=== PATIENT | female | born 1955 | race Caucasian/White ===

== ENCOUNTER 2017-11-16 09:10 | Outpatient (CLI) | payer BC | END 2017-11-16 09:11 | disposition home or self-care (01) | LOC: BICMAMMO 09:10 | PROVIDERS: ATTEND Obstetrics & Gynecology | DX: Z12.31 Encounter for screening mammogram for malignant neoplasm of breast (principal); Z80.3 Family history of malignant neoplasm of breast | CPT/HCPCS: 77063; 77067 ==

== ENCOUNTER 2021-01-12 03:09 | Inpatient (IN) | payer BC, MEDICARE, SELFPAY ==
[2021-01-12] MEDS ORDERED: Acetaminophen 325 MG TAB PO PRN (06:01)
[2021-01-12] MEDS ORDERED: Polyethylene Glycol 3350 17 GM Packet PO PRN (06:20)
[2021-01-12 07:00] LABS: #Lymphocytes 0.9 thou/uL (1.20-3.40); #Monocytes 0.8 thou/uL (0.11-0.59); #Neutrophils 8.8 thou/uL (1.40-6.50); %Basophils 0.4 % (0.0-1.0); %Eosinophils 0.1 % (0.0-10.0); %Lymphocytes 8.8 % (21.0-51.0); %Monocytes 7.2 % (0.0-10.0); %Neutrophils 83.6 % (42.0-75.0); Hemoglobin 15.9 g/dL (12.0-16.0); Mean Corpuscular HGB CONC 33.9 g/dL (32.0-36.0); Mean Corpuscular Hemoglobin 32.5 pg (27.0-31.0); Mean Platelet Volume 7.8 fL (7.4-10.4); Platelet Count 217 thou/uL (130-400); RBC Distribution Width 11.5 % (11.5-14.5); White Blood Cell (WBC) Count 10.5 thou/uL (4.8-10.8)
[2021-01-12 07:07] LABS: Hemoglobin A1c 5.5 % (4.0-6.0)
[2021-01-12 07:11] LABS: Phosphorus 3.8 mg/dL (2.3-4.7)
[2021-01-12 07:15] LABS: ALT (SGPT) 41 U/L (8-55); AST (SGOT) 36 U/L (5-34); Albumin 3.2 g/dL (3.4-4.8); Alkaline Phosphatase 77 U/L (40-110); Anion Gap 15 mmol/L (10-20); BUN (Urea Nitrogen) 22 mg/dL (9.8-20.1); Calc. Creatinine Clearance 129 mL/min (70-130); Calcium 8.4 mg/dL (7.8-10.44); Carbon Dioxide 23 mmol/L (23-31); Chloride 103 mmol/L (98-107); Globulin 2.8 g/dL (2.4-3.5); Glucose 186 mg/dL (80-115); Potassium 3.8 mmol/L (3.5-5.1); Sodium 137 mmol/L (136-145)
[2021-01-12 07:21] LABS: CRP (Inflammatory) 6.46 mg/dL (= or < 0.5); Cholesterol 109 mg/dl (< 200 Desired); HDL Cholesterol 22 mg/dL (>60 Neg Risk); LDL Cholesterol, Calculated 71 mg/dL; Magnesium 2.1 mg/dL (1.6-2.6); Triglycerides 79 mg/dL (Less than 150)
[2021-01-12] MEDS ORDERED: Dexamethasone 4 MG TAB PO SCH (08:00)
[2021-01-12] MEDS ORDERED: Enoxaparin Sodium 40 MG/0.4 ML SYRINGE SC SCH (09:00)
[2021-01-12] MEDS: BARICITINIB 2 MG TAB PO SCH (09:06)
[2021-01-12] MEDS: Apixaban 5 MG TAB PO SCH ×2 (09:07→21:00)
[2021-01-12] MEDS: REMDESIVIR 100 MG in Sodium Chloride 0.9% 250 ML 230 ML IV SCH (11:06)
[2021-01-12] MEDS ORDERED: Iopamidol-370 76% 500 ML 1 ML ONE (12:28)
[2021-01-12] MEDS: Dexamethasone 10 MG/ML VIAL SLOW IVP SCH (21:00)
[2021-01-13 05:28] LABS: ALT (SGPT) 40 U/L (8-55); AST (SGOT) 30 U/L (5-34); Albumin 3.3 g/dL (3.4-4.8); Alkaline Phosphatase 81 U/L (40-110); Anion Gap 16 mmol/L (10-20); BUN (Urea Nitrogen) 20 mg/dL (9.8-20.1); Bilirubin, Total 0.7 mg/dL (0.2-1.2); CRP (Inflammatory) 4.31 mg/dL (= or < 0.5); Calc. Creatinine Clearance 122 mL/min (70-130); Calcium 8.3 mg/dL (7.8-10.44); Carbon Dioxide 23 mmol/L (23-31); Chloride 102 mmol/L (98-107); Globulin 2.6 g/dL (2.4-3.5); Glucose 278 mg/dL (80-115); Potassium 3.9 mmol/L (3.5-5.1); Protein, Total 5.9 g/dL (5.8-8.1); Sodium 137 mmol/L (136-145)
[2021-01-13] MEDS: Dexamethasone 10 MG/ML VIAL SLOW IVP SCH ×2 (08:01→20:00)
[2021-01-13] MEDS: BARICITINIB 2 MG TAB PO SCH (08:01)
[2021-01-13] MEDS: Apixaban 5 MG TAB PO SCH ×2 (08:10→20:00)
[2021-01-13] MEDS: REMDESIVIR 100 MG in Sodium Chloride 0.9% 250 ML 230 ML IV SCH (12:16)
[2021-01-13] MEDS ORDERED: Atorvastatin Calcium 40 MG TAB PO SCH (21:00)
[2021-01-14 06:09] LABS: ALT (SGPT) 45 U/L (8-55); AST (SGOT) 34 U/L (5-34); Albumin 3.2 g/dL (3.4-4.8); Alkaline Phosphatase 89 U/L (40-110); Anion Gap 14 mmol/L (10-20); BUN (Urea Nitrogen) 19 mg/dL (9.8-20.1); Bilirubin, Total 0.8 mg/dL (0.2-1.2); Calc. Creatinine Clearance 133 mL/min (70-130); Calcium 8.1 mg/dL (7.8-10.44); Carbon Dioxide 24 mmol/L (23-31); Chloride 103 mmol/L (98-107); Globulin 2.4 g/dL (2.4-3.5); Glucose 241 mg/dL (80-115); Protein, Total 5.6 g/dL (5.8-8.1); Sodium 137 mmol/L (136-145)
[2021-01-14] MEDS ORDERED: EPINEPHrine 1 MG/10 ML Abboject SYRINGE ONE (06:59)
[2021-01-14] MEDS ORDERED: Lorazepam 2 MG/ML VIAL ONE (07:33)
[2021-01-14] MEDS: BARICITINIB 2 MG TAB PO SCH (08:12)
[2021-01-14] MEDS ORDERED: Fentanyl CADD 100 ML ONE (08:12)
[2021-01-14] MEDS: Apixaban 5 MG TAB PO SCH (08:12)
[2021-01-14] MEDS: Dexamethasone 10 MG/ML VIAL SLOW IVP SCH ×2 (08:13→22:24)
[2021-01-14 08:32] LABS: Hemoglobin 16.3 g/dL (12.0-16.0); Mean Corpuscular HGB CONC 32.6 g/dL (32.0-36.0); Mean Platelet Volume 8.4 fL (7.4-10.4); Platelet Count 287 thou/uL (130-400); RBC Distribution Width 11.7 % (11.5-14.5)
[2021-01-14 08:36] LABS: Troponin I Less than 0.010 ng/mL (< 0.028)
[2021-01-14 08:47] LABS: ALT (SGPT) 283 U/L (8-55); AST (SGOT) 307 U/L (5-34); Albumin 3.1 g/dL (3.4-4.8); Alkaline Phosphatase 87 U/L (40-110); Anion Gap 21 mmol/L (10-20); BUN (Urea Nitrogen) 22 mg/dL (9.8-20.1); Bilirubin, Total 0.8 mg/dL (0.2-1.2); Calc. Creatinine Clearance 112 mL/min (70-130); Carbon Dioxide 19 mmol/L (23-31); Chloride 102 mmol/L (98-107); Glucose 266 mg/dL (80-115); Magnesium 2.6 mg/dL (1.6-2.6); Protein, Total 6.1 g/dL (5.8-8.1); Sodium 137 mmol/L (136-145)
[2021-01-14] MEDS ORDERED: Dextrose 50% Abboject 50 ML SYRINGE SLOW IVP PRN (09:32)
[2021-01-14] MEDS ORDERED: Dextrose 5% in Water 1,000 ML IV PRN (09:32)
[2021-01-14 09:36] LABS: Anisocytosis SLIGHT = 6-15 cells (100X) (0-5/hpf); Band 6 % (5-11); Lymphocytes 10 % (21-51); MDiff Complete? YES; Monocytes 12 % (0-10); Neutrophil 72 % (42-75); Platelet Morphology Comment Appears Adequate; Polychromasia SLIGHT = 2-3 cells (100X) (0-2/hpf)
[2021-01-14 09:43] LABS: Actual Bicarbonate (HCO3a) 19.5 mEq/L (22-28); Base Excess (BEa) -0.8 mEq/L (-2.0 to +3.0); Calcium, Ionized (arterial) 1.06 mmol/L (1.12-1.30); Carboxyhemoglobin (COHb) 0.3 gm% (0.0-3.0); Hemoglobin (Hb) 14.7 g/dL (12.0-16.0); O2 Tension (PaO2), arterial 241.6 mmHg (> 80.0); Potassium - ABG Lab 3.75 mmol/L (3.70-5.30)
[2021-01-14] MEDS ORDERED: Electrolyte Replacement Protocol 1 EACH IVPB PRN (10:14)
[2021-01-14] MEDS ORDERED: Famotidine/PF 20 mg/2ml Vial SLOW IVP SCH ×2 (10:15→21:00)
[2021-01-14] MEDS ORDERED: Fentanyl BOLUS 250 ML IVPB PRN (10:15)
[2021-01-14] MEDS ORDERED: Propofol BOLUS 1,000 MG/100 ML VIAL IV PRN (10:15)
[2021-01-14] MEDS ORDERED: Morphine 2 MG/ML VIAL SLOW IVP PRN (10:15)
[2021-01-14] MEDS ORDERED: Ventilator Sedation Protocol 1 EACH FS SCH (10:15)
[2021-01-14 10:21] LABS: pH, Arterial 7.55 (7.35-7.45)
[2021-01-14 10:26] LABS: Puncture Site LRA
[2021-01-14] MEDS ORDERED: Enoxaparin Sodium 100 MG/ML SYRINGE SC SCH (10:45)
[2021-01-14] MEDS: Lorazepam 2 MG/ML VIAL SLOW IVP PRN ×2 (15:47→17:05)
[2021-01-14] MEDS: Propofol 1,000 MG/100 ML VIAL IV PRN ×2 (15:47→21:55)
[2021-01-14] MEDS ORDERED: Pantoprazole 40 MG VIAL IVP SCH (21:45)
[2021-01-14] MEDS: Enoxaparin Sodium 100 MG/ML SYRINGE SC SCH (21:54)
[2021-01-15] MEDS ORDERED: Lactated Ringer's 1,000 ML IV SCH (03:00)
[2021-01-15] MEDS ORDERED: Fentanyl CADD 100 ML ONE ×2 (03:04→22:53)
[2021-01-15] MEDS: Fentanyl CADD 100 ML IV SCH ×2 (03:10→22:55)
[2021-01-15 05:01] LABS: ALT (SGPT) 306 U/L (8-55); AST (SGOT) 165 U/L (5-34); Albumin 2.9 g/dL (3.4-4.8); Alkaline Phosphatase 76 U/L (40-110); Anion Gap 14 mmol/L (10-20); BUN (Urea Nitrogen) 34 mg/dL (9.8-20.1); Bilirubin, Total 0.8 mg/dL (0.2-1.2); Calc. Creatinine Clearance 119 mL/min (70-130); Calcium 7.9 mg/dL (7.8-10.44); Carbon Dioxide 23 mmol/L (23-31); Chloride 106 mmol/L (98-107); Globulin 2.3 g/dL (2.4-3.5); Glucose 192 mg/dL (80-115); Potassium 4.8 mmol/L (3.5-5.1); Protein, Total 5.2 g/dL (5.8-8.1); Sodium 138 mmol/L (136-145)
[2021-01-15] MEDS: Propofol 1,000 MG/100 ML VIAL IV PRN ×2 (08:39→15:08)
[2021-01-15] MEDS: Enoxaparin Sodium 100 MG/ML SYRINGE SC SCH ×2 (08:39→19:55)
[2021-01-15] MEDS: Dexamethasone 10 MG/ML VIAL SLOW IVP SCH ×2 (08:39→19:55)
[2021-01-15] MEDS: BARICITINIB 2 MG TAB PO SCH (08:40)
[2021-01-15] MEDS: Lactated Ringer's 1,000 ML IV SCH (08:40)
[2021-01-15 08:56] LABS: Hemoglobin 14.4 g/dL (12.0-16.0); Mean Corpuscular HGB CONC 34.2 g/dL (32.0-36.0); Mean Corpuscular Hemoglobin 33.9 pg (27.0-31.0); Mean Corpuscular Volume 98.9 fL (78.0-98.0); Mean Platelet Volume 8.3 fL (7.4-10.4); Platelet Count 284 thou/uL (130-400); RBC Distribution Width 11.7 % (11.5-14.5); Red Blood Cell (RBC) Count 4.24 mill/uL (4.20-5.40); White Blood Cell (WBC) Count 20.9 thou/uL (4.8-10.8)
[2021-01-15 09:41] LABS: Band 5 % (5-11); Lymphocytes 6 % (21-51); MDiff Complete? YES; Macrocytosis SLIGHT = 6-15 cells (100X) (0-5/hpf); Monocytes 2 % (0-10); Neutrophil 87 % (42-75); Platelet Morphology Comment Appears Increased; Polychromasia SLIGHT = 2-3 cells (100X) (0-2/hpf)
[2021-01-15] MEDS: Pantoprazole 40 MG VIAL IVP SCH (19:55)
[2021-01-15] MEDS: Lorazepam 2 MG/ML VIAL SLOW IVP PRN (22:48)
[2021-01-16] MEDS: Propofol 1,000 MG/100 ML VIAL IV PRN ×2 (00:15→07:58)
[2021-01-16 04:59] LABS: Hemoglobin 13.5 g/dL (12.0-16.0); Mean Corpuscular HGB CONC 33.3 g/dL (32.0-36.0); Mean Corpuscular Hemoglobin 32.4 pg (27.0-31.0); Mean Corpuscular Volume 97.3 fL (78.0-98.0); Mean Platelet Volume 8.4 fL (7.4-10.4); Platelet Count 255 thou/uL (130-400); RBC Distribution Width 11.5 % (11.5-14.5); Red Blood Cell (RBC) Count 4.17 mill/uL (4.20-5.40); White Blood Cell (WBC) Count 15.1 thou/uL (4.8-10.8)
[2021-01-16 05:42] LABS: Band 3 % (5-11); Lymphocytes 2 % (21-51); MDiff Complete? YES; Metamyelocyte 1 % (0-0); Monocytes 2 % (0-10); Neutrophil 92 % (42-75)
[2021-01-16 05:55] LABS: ALT (SGPT) 217 U/L (8-55); AST (SGOT) 61 U/L (5-34); Albumin 2.8 g/dL (3.4-4.8); Alkaline Phosphatase 66 U/L (40-110); Anion Gap 13 mmol/L (10-20); BUN (Urea Nitrogen) 33 mg/dL (9.8-20.1); Bilirubin, Total 0.6 mg/dL (0.2-1.2); Calc. Creatinine Clearance 131 mL/min (70-130); Calcium 7.9 mg/dL (7.8-10.44); Carbon Dioxide 26 mmol/L (23-31); Chloride 106 mmol/L (98-107); Globulin 2.2 g/dL (2.4-3.5); Glucose 204 mg/dL (80-115); Potassium 4.8 mmol/L (3.5-5.1); Sodium 140 mmol/L (136-145)
[2021-01-16] MEDS: Enoxaparin Sodium 100 MG/ML SYRINGE SC SCH ×2 (07:58→20:29)
[2021-01-16] MEDS: Dexamethasone 10 MG/ML VIAL SLOW IVP SCH ×2 (07:59→20:29)
[2021-01-16] MEDS ORDERED: BARICITINIB 2 MG TAB PO SCH (09:00)
[2021-01-16 09:23] LABS: Calcium, Ionized (arterial) 1.12 mmol/L (1.12-1.30); Carboxyhemoglobin (COHb) 0.2 gm% (0.0-3.0); Hemoglobin (Hb) 13.7 g/dL (12.0-16.0); O2 Tension (PaO2), arterial 94.2 mmHg (> 80.0); Potassium - ABG Lab 4.64 mmol/L (3.70-5.30); pH, Arterial 7.42 (7.35-7.45)
[2021-01-16 09:24] LABS: Puncture Site LRA
[2021-01-16] MEDS: Dexmedetomidine 1,000 MCG in Sodium Chloride 0.9% 250 ML 240 ML IVPB SCH (16:40)
[2021-01-16] MEDS: Lorazepam 2 MG/ML VIAL SLOW IVP PRN ×2 (16:51→16:58)
[2021-01-16] MEDS: Pantoprazole 40 MG VIAL IVP SCH (20:29)
[2021-01-16] MEDS: Lactated Ringer's 1,000 ML IV SCH (21:15)
[2021-01-17] MEDS ORDERED: hydrALAZINE 20 MG/ML VIAL SLOW IVP SCH (04:00)
[2021-01-17] MEDS: Lorazepam 2 MG/ML VIAL SLOW IVP PRN (04:29)
[2021-01-17] MEDS ORDERED: Fentanyl CADD 100 ML ONE (04:57)
[2021-01-17] MEDS: Fentanyl CADD 100 ML IV SCH (05:10)
[2021-01-17 05:14] LABS: Hemoglobin 14.8 g/dL (12.0-16.0); Mean Corpuscular HGB CONC 34.3 g/dL (32.0-36.0); Mean Corpuscular Volume 96.2 fL (78.0-98.0); Mean Platelet Volume 9.2 fL (7.4-10.4); Platelet Count 226 thou/uL (130-400); RBC Distribution Width 11.4 % (11.5-14.5); Red Blood Cell (RBC) Count 4.48 mill/uL (4.20-5.40); White Blood Cell (WBC) Count 13.1 thou/uL (4.8-10.8)
[2021-01-17 05:24] LABS: Anion Gap 13 mmol/L (10-20); BUN (Urea Nitrogen) 29 mg/dL (9.8-20.1); Calc. Creatinine Clearance 138 mL/min (70-130); Carbon Dioxide 25 mmol/L (23-31); Chloride 104 mmol/L (98-107); Glucose 176 mg/dL (80-115); Potassium 5.3 mmol/L (3.5-5.1); Sodium 137 mmol/L (136-145)
[2021-01-17 06:02] LABS: Band 4 % (5-11); Lymphocytes 10 % (21-51); MDiff Complete? YES; Monocytes 3 % (0-10); Neutrophil 81 % (42-75); Platelet Morphology Comment Appears Adequate; RBC Morphology Normal; Reactive Lymphocytes 2 % (0-10)
[2021-01-17 08:00] LABS: Actual Bicarbonate (HCO3a) 28.5 mEq/L (22-28); Base Excess (BEa) 4.7 mEq/L (-2.0 to +3.0); CO2 Tension 39.5 mmHg (35.0-45.0); Calcium, Ionized (arterial) 1.13 mmol/L (1.12-1.30); Hemoglobin (Hb) 15.8 g/dL (12.0-16.0); O2 Tension (PaO2), arterial 83.9 mmHg (> 80.0); Potassium - ABG Lab 4.27 mmol/L (3.70-5.30); pH, Arterial 7.48 (7.35-7.45)
[2021-01-17] MEDS ORDERED: Albuterol Sulfate 2.5 mg/0.5 ml Neb ONE (08:32)
[2021-01-17] MEDS: Enoxaparin Sodium 100 MG/ML SYRINGE SC SCH ×2 (08:34→20:34)
[2021-01-17] MEDS: Dexamethasone 10 MG/ML VIAL SLOW IVP SCH ×2 (08:34→20:34)
[2021-01-17 09:54] LABS: ALV-art Gradient 151.925 mmHg (0-20); Puncture Site RRA
[2021-01-17] MEDS: Dexmedetomidine 1,000 MCG in Sodium Chloride 0.9% 250 ML 240 ML IVPB SCH (17:32)
[2021-01-17] MEDS: Pantoprazole 40 MG VIAL IVP SCH (20:34)
[2021-01-18 04:18] LABS: Hemoglobin 14.6 g/dL (12.0-16.0); Mean Corpuscular HGB CONC 33.4 g/dL (32.0-36.0); Mean Corpuscular Hemoglobin 32.2 pg (27.0-31.0); Mean Corpuscular Volume 96.4 fL (78.0-98.0); Mean Platelet Volume 9.1 fL (7.4-10.4); Platelet Count 253 thou/uL (130-400); RBC Distribution Width 11.4 % (11.5-14.5); Red Blood Cell (RBC) Count 4.55 mill/uL (4.20-5.40)
[2021-01-18 04:21] LABS: Anion Gap 14 mmol/L (10-20); BUN (Urea Nitrogen) 27 mg/dL (9.8-20.1); Calc. Creatinine Clearance 137 mL/min (70-130); Calcium 8.2 mg/dL (7.8-10.44); Carbon Dioxide 24 mmol/L (23-31); Chloride 101 mmol/L (98-107); Glucose 223 mg/dL (80-115); Potassium 4.7 mmol/L (3.5-5.1); Sodium 134 mmol/L (136-145)
[2021-01-18 06:00] LABS: Band 9 % (5-11); Lymphocytes 4 % (21-51); MDiff Complete? YES; Metamyelocyte 1 % (0-0); Monocytes 5 % (0-10); Neutrophil 81 % (42-75); Platelet Morphology Comment Appears Adequate
[2021-01-18] MEDS: Enoxaparin Sodium 100 MG/ML SYRINGE SC SCH ×2 (09:05→20:17)
[2021-01-18] MEDS: Dexamethasone 10 MG/ML VIAL SLOW IVP SCH ×2 (09:09→20:17)
[2021-01-18] MEDS: Pantoprazole 40 MG VIAL IVP SCH (20:18)
[2021-01-19] MEDS: Enoxaparin Sodium 100 MG/ML SYRINGE SC SCH ×2 (09:15→21:37)
[2021-01-19] MEDS: Dexamethasone 10 MG/ML VIAL SLOW IVP SCH ×2 (09:15→21:37)
[2021-01-19] MEDS ORDERED: Non-Formulary Item 1 EACH (Albuterol Sulfate [Proair Hfa] 8.5 GM Hfa.Aer.Ad) INH PRN (13:37)
[2021-01-19] MEDS ORDERED: Albuterol 200 PUFF (6.7GM INHALER) INH PRN (13:59)
[2021-01-19 17:59] LABS: Mean Corpuscular HGB CONC 33.4 g/dL (32.0-36.0); Mean Corpuscular Hemoglobin 32.4 pg (27.0-31.0); Mean Corpuscular Volume 97.1 fL (78.0-98.0); Platelet Count 202 thou/uL (130-400); RBC Distribution Width 11.6 % (11.5-14.5); Red Blood Cell (RBC) Count 4.95 mill/uL (4.20-5.40)
[2021-01-19 18:12] LABS: Anion Gap 14 mmol/L (10-20); BUN (Urea Nitrogen) 17 mg/dL (9.8-20.1); Calc. Creatinine Clearance 163 mL/min (70-130); Calcium 8.6 mg/dL (7.8-10.44); Carbon Dioxide 25 mmol/L (23-31); Chloride 102 mmol/L (98-107); Glucose 166 mg/dL (80-115); Potassium 4.3 mmol/L (3.5-5.1); Sodium 137 mmol/L (136-145)
[2021-01-19 18:19] LABS: Band 1 % (5-11); Lymphocytes 2 % (21-51); MDiff Complete? YES; Monocytes 6 % (0-10); Neutrophil 91 % (42-75); Platelet Morphology Comment Appears Adequate; RBC Morphology Normal
[2021-01-19] MEDS: Pantoprazole 40 MG VIAL IVP SCH (21:38)
[2021-01-19] MEDS: Losartan 25 MG TAB PO SCH (22:00)
[2021-01-20] MEDS: hydrALAZINE 20 MG/ML VIAL SLOW IVP PRN ×2 (00:39→00:40)
[2021-01-20 05:57] LABS: Hemoglobin 15.5 g/dL (12.0-16.0); Lymphocytes 2 % (21-51); MDiff Complete? YES; Mean Corpuscular HGB CONC 32.3 g/dL (32.0-36.0); Mean Corpuscular Hemoglobin 31.2 pg (27.0-31.0); Mean Corpuscular Volume 96.6 fL (78.0-98.0); Mean Platelet Volume 9.2 fL (7.4-10.4); Monocytes 5 % (0-10); Neutrophil 93 % (42-75); Platelet Count 224 thou/uL (130-400); Platelet Morphology Comment Appears Adequate; RBC Distribution Width 11.6 % (11.5-14.5); RBC Morphology Normal; Red Blood Cell (RBC) Count 4.96 mill/uL (4.20-5.40); White Blood Cell (WBC) Count 15.5 thou/uL (4.8-10.8)
[2021-01-20 06:04] LABS: Anion Gap 14 mmol/L (10-20); BUN (Urea Nitrogen) 19 mg/dL (9.8-20.1); Calc. Creatinine Clearance 152 mL/min (70-130); Calcium 8.5 mg/dL (7.8-10.44); Carbon Dioxide 24 mmol/L (23-31); Chloride 103 mmol/L (98-107); Glucose 202 mg/dL (80-115); Potassium 3.9 mmol/L (3.5-5.1); Sodium 137 mmol/L (136-145)
[2021-01-20] MEDS: HumaLOG 300 UNITS/3 ML VIAL SC PRN (06:38)
[2021-01-20] MEDS: Dexamethasone 10 MG/ML VIAL SLOW IVP SCH (09:26)
[2021-01-20] MEDS: Hydrochlorothiazide 25 MG TAB PO SCH (09:27)
[2021-01-20] MEDS: Enoxaparin Sodium 100 MG/ML SYRINGE SC SCH ×2 (09:27→21:08)
[2021-01-20] MEDS: Pantoprazole 40 MG VIAL IVP SCH (21:09)
[2021-01-20] MEDS: Losartan 25 MG TAB PO SCH (21:09)
[2021-01-21 05:58] LABS: Band 1 % (5-11); Hemoglobin 15.2 g/dL (12.0-16.0); Lymphocytes 10 % (21-51); MDiff Complete? YES; Mean Corpuscular HGB CONC 32.7 g/dL (32.0-36.0); Mean Corpuscular Hemoglobin 31.8 pg (27.0-31.0); Mean Platelet Volume 9.5 fL (7.4-10.4); Monocytes 13 % (0-10); Neutrophil 76 % (42-75); Platelet Count 189 thou/uL (130-400); Platelet Morphology Comment Appears Adequate; RBC Distribution Width 11.7 % (11.5-14.5); RBC Morphology Normal; Red Blood Cell (RBC) Count 4.79 mill/uL (4.20-5.40); White Blood Cell (WBC) Count 13.1 thou/uL (4.8-10.8)
[2021-01-21] MEDS: HumaLOG 300 UNITS/3 ML VIAL SC PRN ×4 (06:04→20:09)
[2021-01-21 06:09] LABS: Anion Gap 16 mmol/L (10-20); BUN (Urea Nitrogen) 21 mg/dL (9.8-20.1); Calc. Creatinine Clearance 160 mL/min (70-130); Calcium 8.3 mg/dL (7.8-10.44); Carbon Dioxide 22 mmol/L (23-31); Chloride 104 mmol/L (98-107); Glucose 114 mg/dL (80-115); Potassium 3.7 mmol/L (3.5-5.1); Sodium 138 mmol/L (136-145)
[2021-01-21] MEDS: Hydrochlorothiazide 25 MG TAB PO SCH (09:43)
[2021-01-21] MEDS: Dexamethasone 10 MG/ML VIAL SLOW IVP SCH (09:43)
[2021-01-21] MEDS: Enoxaparin Sodium 100 MG/ML SYRINGE SC SCH (09:43)
[2021-01-21] MEDS: Atorvastatin Calcium 40 MG TAB PO SCH (09:43)
[2021-01-21] MEDS: Apixaban 5 MG TAB PO SCH (19:56)
[2021-01-22 06:00] LABS: Hemoglobin 15.6 g/dL (12.0-16.0); Lymphocytes 9 % (21-51); MDiff Complete? YES; Mean Corpuscular HGB CONC 32.7 g/dL (32.0-36.0); Mean Corpuscular Hemoglobin 31.6 pg (27.0-31.0); Mean Corpuscular Volume 96.8 fL (78.0-98.0); Mean Platelet Volume 9.2 fL (7.4-10.4); Metamyelocyte 1 % (0-0); Monocytes 10 % (0-10); Neutrophil 80 % (42-75); Platelet Count 178 thou/uL (130-400); Platelet Morphology Comment Appears Adequate; RBC Distribution Width 11.7 % (11.5-14.5); Red Blood Cell (RBC) Count 4.93 mill/uL (4.20-5.40); White Blood Cell (WBC) Count 11.9 thou/uL (4.8-10.8)
[2021-01-22 06:10] LABS: Anion Gap 15 mmol/L (10-20); BUN (Urea Nitrogen) 20 mg/dL (9.8-20.1); Calc. Creatinine Clearance 163 mL/min (70-130); Calcium 8.6 mg/dL (7.8-10.44); Carbon Dioxide 24 mmol/L (23-31); Chloride 103 mmol/L (98-107); Glucose 107 mg/dL (80-115); Potassium 3.5 mmol/L (3.5-5.1); Sodium 138 mmol/L (136-145)
[2021-01-22] MEDS ORDERED: Potassium Chloride 20 MEQ TAB PO SCH (07:00)
[2021-01-22] MEDS: Hydrochlorothiazide 25 MG TAB PO SCH (09:03)
[2021-01-22] MEDS: Atorvastatin Calcium 40 MG TAB PO SCH (09:03)
[2021-01-22] MEDS: Apixaban 5 MG TAB PO SCH ×2 (09:03→20:00)
[2021-01-22] MEDS: Dexamethasone 10 MG/ML VIAL SLOW IVP SCH (09:04)
[2021-01-22] MEDS: HumaLOG 300 UNITS/3 ML VIAL SC PRN ×2 (11:45→18:11)
[2021-01-22] MEDS: Losartan 25 MG TAB PO SCH (20:00)
[2021-01-22] MEDS: Lactated Ringer's 1,000 ML IV SCH (20:07)
[2021-01-23] MEDS: Hydrochlorothiazide 25 MG TAB PO SCH (09:03)
[2021-01-23] MEDS: Atorvastatin Calcium 40 MG TAB PO SCH (09:04)
[2021-01-23] MEDS: Apixaban 5 MG TAB PO SCH ×2 (09:04→20:34)
[2021-01-23 11:12] LABS: Anion Gap 18 mmol/L (10-20); BUN (Urea Nitrogen) 20 mg/dL (9.8-20.1); Calc. Creatinine Clearance 131 mL/min (70-130); Calcium 8.9 mg/dL (7.8-10.44); Carbon Dioxide 22 mmol/L (23-31); Chloride 102 mmol/L (98-107); Glucose 121 mg/dL (80-115); Potassium 4.2 mmol/L (3.5-5.1); Sodium 138 mmol/L (136-145)
[2021-01-23 11:18] LABS: Hemoglobin 16.8 g/dL (12.0-16.0); Mean Corpuscular HGB CONC 33.6 g/dL (32.0-36.0); Mean Corpuscular Hemoglobin 32.9 pg (27.0-31.0); Mean Platelet Volume 10.7 fL (7.4-10.4); Platelet Count 169 thou/uL (130-400); RBC Distribution Width 11.9 % (11.5-14.5); Red Blood Cell (RBC) Count 5.12 mill/uL (4.20-5.40); White Blood Cell (WBC) Count 14.8 thou/uL (4.8-10.8)
[2021-01-23 11:19] LABS: Band 2 % (5-11); Eosinophils 1 % (0-10); Lymphocytes 15 % (21-51); MDiff Complete? YES; Monocytes 9 % (0-10); Neutrophil 73 % (42-75); Platelet Morphology Comment Appears Adequate; RBC Morphology Normal
[2021-01-23] MEDS: HumaLOG 300 UNITS/3 ML VIAL SC PRN ×2 (16:28→23:18)
[2021-01-23] MEDS: Losartan 25 MG TAB PO SCH (20:33)
[2021-01-24 05:13] VITALS: BMI 38.2
[2021-01-24 05:31] LABS: Hemoglobin 14.6 g/dL (12.0-16.0); Mean Corpuscular HGB CONC 33.3 g/dL (32.0-36.0); Mean Corpuscular Hemoglobin 32.2 pg (27.0-31.0); Mean Corpuscular Volume 96.8 fL (78.0-98.0); Mean Platelet Volume 9.4 fL (7.4-10.4); Platelet Count 142 thou/uL (130-400); RBC Distribution Width 11.7 % (11.5-14.5); Red Blood Cell (RBC) Count 4.52 mill/uL (4.20-5.40); White Blood Cell (WBC) Count 13.8 thou/uL (4.8-10.8)
[2021-01-24 05:32] LABS: Band 2 % (5-11); Lymphocytes 8 % (21-51); MDiff Complete? YES; Monocytes 7 % (0-10); Neutrophil 83 % (42-75); Platelet Morphology Comment Appears Adequate; RBC Morphology Normal
[2021-01-24 05:35] LABS: Anion Gap 11 mmol/L (10-20); BUN (Urea Nitrogen) 23 mg/dL (9.8-20.1); Calc. Creatinine Clearance 147 mL/min (70-130); Calcium 8.1 mg/dL (7.8-10.44); Carbon Dioxide 24 mmol/L (23-31); Chloride 102 mmol/L (98-107); Glucose 128 mg/dL (80-115); Sodium 134 mmol/L (136-145)
[2021-01-24] MEDS ORDERED: Potassium Chloride 20 MEQ TAB PO SCH (07:00)
[2021-01-24] MEDS ORDERED: Losartan 25 MG TAB PO SCH (09:00)
[2021-01-24] MEDS: Atorvastatin Calcium 40 MG TAB PO SCH (09:03)
[2021-01-24] MEDS: Apixaban 5 MG TAB PO SCH (09:03)
[2021-01-24 18:22] VITALS: BP 115/64; TEMP 98.1
== END 2021-01-24 17:11 | DRG 207 ==
LOC: IMCU/EMU 05:22 → 2SW 20:14 → CCU 01-14 09:27 → 2SW 01-19 12:05
PROVIDERS: ADMIT Family Medicine; ATTEND Family Medicine
PROC: XW033E5 Introduction of Remdesivir Anti-infective into Peripheral Vein, Percutaneous Approach, New Technology Group 5 (ICD-10-PCS; principal; 2021-01-12)
PROC: 8E0ZXY6 Isolation (ICD-10-PCS; 2021-01-12)
PROC: 5A12012 Performance of Cardiac Output, Single, Manual (ICD-10-PCS; 2021-01-13)
PROC: 5A1955Z Respiratory Ventilation, Greater than 96 Consecutive Hours (ICD-10-PCS; 2021-01-14)
PROC: 0BH18EZ Insertion of Endotracheal Airway into Trachea, Via Natural or Artificial Opening Endoscopic (ICD-10-PCS; 2021-01-14)
DX: U07.1 COVID-19 (principal); J12.82 Pneumonia due to coronavirus disease 2019; J96.01 Acute respiratory failure with hypoxia; I46.9 Cardiac arrest, cause unspecified; I47.2 Ventricular tachycardia; K92.1 Melena; E78.5 Hyperlipidemia, unspecified; I48.0 Paroxysmal atrial fibrillation; E66.01 Morbid (severe) obesity due to excess calories; I45.81 Long QT syndrome; I10 Essential (primary) hypertension; R73.9 Hyperglycemia, unspecified; E87.6 Hypokalemia; T38.0X5A Adverse effect of glucocorticoids and synthetic analogues, initial encounter; Z98.51 Tubal ligation status; Z68.38 Body mass index [BMI] 38.0-38.9, adult
CPT/HCPCS: 36415; 36416; 36600; 71045; 71275; 80048; 80053; 80061; 82274; 82805; 83036; 83735; 83880; 84100; 84145; 84443; 84484; 85007; 85025; 85027; 85379; 85520; 86140; 93005; 93010; 93306; 94002; 94003; C9113; J0171; J0360; J1100; J1650; J1815; J2060; J2270; J2704; J3010; J7050; J7120; J8540; Q9967

== ENCOUNTER 2023-04-02 10:28 | Outpatient (CLI) | payer MEDICARE | END 2023-04-02 10:29 | disposition home or self-care (01) | LOC: BICMAMMO 10:28 | PROVIDERS: ATTEND Family Medicine | DX: Z12.31 Encounter for screening mammogram for malignant neoplasm of breast (principal) | CPT/HCPCS: 77063; 77067 ==

== ENCOUNTER 2024-04-04 10:49 | Outpatient (CLI) | payer MEDICARE | END 2024-04-04 10:50 | disposition home or self-care (01) | LOC: BICMAMMO 10:49 | PROVIDERS: ATTEND Family Medicine | DX: Z12.31 Encounter for screening mammogram for malignant neoplasm of breast (principal); Z80.3 Family history of malignant neoplasm of breast | CPT/HCPCS: 77063; 77067 ==

== ENCOUNTER 2025-04-05 10:32 | Outpatient (CLI) | payer MEDICARE | END 2025-04-05 10:33 | disposition home or self-care (01) | LOC: BICMAMMO 10:32 | PROVIDERS: ATTEND Family Medicine | DX: Z12.31 Encounter for screening mammogram for malignant neoplasm of breast (principal); Z80.3 Family history of malignant neoplasm of breast | CPT/HCPCS: 77063; 77067 ==